=== PATIENT | male | born 1995 | race American Indian/Alaskan Native ===

== ENCOUNTER 2017-06-24 20:49 | Emergency (ER) | payer MEDICAID ==
[2017-06-24] MEDS ORDERED: DUONEB *Not for PRN Use IH ONE (21:06)
--- NOTE | 2017-06-24 22:35 | Emergency Department Report ---
ED Asthma HPI - General Chief Complaint: Adult Asthma Stated Complaint: TIM Time Seen by Provider: 06/24/17 22:30 Source: family Mode of arrival: Ambulatory Limitations: No Limitations - History of Present Illness Initial Comments: 20-year-old -[place] male with a past medical history of asthma comes in for complaint of chest tightness and shortness of breathing with wheezing started on Friday. Patient reports that he has been using his fianc's albuterol feels like it's not working. Patient complains of cough wheezing runny nose and nasal congestion and sneezing. He reports he stopped smoking one month ago. He currently takes no medications on a daily basis he has no known drug allergies just reports he is allergic to seafood. He denies fever chills or nausea no vomiting or headache no shortness of breath and shortness of breath with exertion. MD Complaint: wheezing -: days(s) (4) Asthma History: childhood onset Severity: mild Context: ran out of meds Associated Symptoms: denies: productive cough, fever, chest pain Treatments Prior to Arrival: inhaled bronchodilator - Related Data Current Asthma Therapy: none Previous Rx's Medication Instructions Recorded Last Taken Type Ciprofloxacin HCl [Ciprofloxacin 500 mg PO Q12H #20 tab 10/25/15 Unknown Rx TAB] ALBUTEROL Inhaler [ProAir HFA 2 puff IH QID PRN #1 inhalation 06/24/17 Unknown Rx Inhaler] Allergies Allergy/AdvReac Type Severity Reaction Status Date / Time No Known Allergies Allergy Unverified 10/25/15 13:19 ED Review of Systems ROS: Stated complaint: TIM Other details as noted in HPI Constitutional: denies: chills, fever Eyes: denies: eye pain, eye discharge, vision change ENT: congestion, other (rhinorrhea and sneezing). denies: ear pain, throat pain Respiratory: cough, wheezing Cardiovascular: denies: chest pain, palpitations Endocrine: no symptoms reported Gastrointestinal: denies: abdominal pain, nausea, diarrhea Genitourinary: denies: urgency, dysuria Musculoskeletal: denies: back pain, joint swelling, arthralgia Skin: denies: rash, lesions Neurological: denies: headache, weakness, paresthesias Psychiatric: denies: anxiety, depression Hematological/Lymphatic: denies: easy bleeding, easy bruising ED Past Medical Hx - Past Medical History Previous Medical History?: Yes Hx Asthma: Yes Additional medical history: Pt. born with Cerebal Palsy(fraternal spastic paralysis) - Surgical History Past Surgical History?: No - Social History Smoking Status: Never Smoker Substance Use Type: None - Medications Home Medications: Home Medications Medication Instructions Recorded Confirmed Last Taken Type Ciprofloxacin HCl [Ciprofloxacin 500 mg PO Q12H #20 tab 10/25/15 Unknown Rx TAB] ALBUTEROL Inhaler [ProAir HFA 2 puff IH QID PRN #1 inhalation 06/24/17 Unknown Rx Inhaler] ED Physical Exam - General Limitations: No Limitations General appearance: alert, in no apparent distress - Head Head exam: Present: atraumatic, normocephalic - Eye Eye exam: Present: normal appearance - ENT ENT exam: Present: mucous membranes moist - Neck Neck exam: Present: normal inspection - Respiratory Respiratory exam: Present: normal lung sounds bilaterally. Absent: respiratory distress - Cardiovascular Cardiovascular Exam: Present: regular rate, normal rhythm. Absent: systolic murmur, diastolic murmur, rubs, gallop - GI/Abdominal GI/Abdominal exam: Present: soft, normal bowel sounds - Rectal Rectal exam: Present: deferred - Extremities Exam Extremities exam: Present: normal inspection - Back Exam Back exam: Present: normal inspection - Neurological Exam Neurological exam: Present: alert, oriented X3 - Psychiatric Psychiatric exam: Present: normal affect, normal mood - Skin Skin exam: Present: warm, dry, intact, normal color. Absent: rash ED Course Vital Signs 06/24/17 21:03 Temperature 98 F Pulse Rate 85 Respiratory 16 Rate Blood Pressure 126/77 O2 Sat by Pulse 99 Oximetry ED Medical Decision Making - Medical Decision Making Patient reports that he feels much better since have an albuterol treatment in triage. Discussed the patient he should start on [id number] antihistamine for allergies and I will give a prescription for albuterol inhaler. Patient verbalized understanding. Critical care attestation.: If time is entered above; I have spent that time in minutes in the direct care of this critically ill patient, excluding procedure time. ED Disposition Clinical Impression: Asthma Qualifiers: Asthma severity: unspecified severity Asthma complication type: unspecified Disposition: DC-01 TO HOME OR SELFCARE Is pt being admited?: No Does the pt Need Aspirin: No Condition: Stable Instructions: Asthma (ED) Additional Instructions: Please take medication as prescribed. If symptoms persist or gets worse please follow up with a primary care provider. Prescriptions: ALBUTEROL Inhaler [ProAir HFA Inhaler] 2 puff IH QID PRN #1 inhalation PRN Reason: Shortness Of Breath Referrals: PRIMARY CARE,MD [Primary Care Provider] - 3-5 Days Forms: Work/School Release Form(ED), Accompanied Note
[2017-06-24 22:42] VITALS: BP 128/73
== END 2017-06-24 22:42 | disposition home or self-care (01) ==
LOC: ED 20:49
DX: J45.909 Unspecified asthma, uncomplicated (principal)
CPT/HCPCS: 99282

== ENCOUNTER 2017-07-20 22:14 | Emergency (ER) | payer MEDICAID ==
[2017-07-21 00:20] VITALS: BP 107/91
[2017-07-21 00:29] LABS: Hematocrit 44.1 % (35.5-45.6); Hemoglobin 14.7 gm/dl (11.8-15.2); Mean Corpuscular HGB Conc 33 % (32-34); Mean Corpuscular Hemoglobin 32 pg (28-32); Mean Corpuscular Volume 95 fl (84-94); Platelet Count 267 K/mm3 (140-440); Red Blood Count 4.65 M/mm3 (3.65-5.03); Red Cell Distribution Width 13.2 % (13.2-15.2)
[2017-07-21 00:54] LABS: Alanine Aminotransferase 7 units/L (7-56); BUN/Creatinine Ratio 35; Blood Urea Nitrogen 21 mg/dL (9-20); Calcium 9.5 mg/dL (8.4-10.2); Hemolysis Index 6; Lipase 12 units/L (13-60)
[2017-07-21 01:36] LABS: Albumin 4.7 g/dL (3.9-5)
[2017-07-21 03:25] LABS: Basophils % (Manual) 0 % (0.0-1.8); Eosinophils % (Manual) 0 % (0.0-4.3); Platelet Estimate Consistent w Auto; Total Cells Counted 100
== END 2017-07-21 04:34 | disposition left against medical advice (07) ==
LOC: ED 22:14
DX: R50.9 Fever, unspecified (principal); R11.10 Vomiting, unspecified; J45.909 Unspecified asthma, uncomplicated; Z53.21 Procedure and treatment not carried out due to patient leaving prior to being seen by health care provider
CPT/HCPCS: 36415; 80053; 83690; 85007; 85025